=== PATIENT | male | born 1950 | race Caucasian/White ===

== ENCOUNTER 2018-10-26 10:53 | Inpatient (IN) ==
[2018-10-26] MEDS ORDERED: PULMICORT NEB TX 0.5 MG NEB ONE (11:20)
[2018-10-26] MEDS ORDERED: NS 1000 ML ONE ×2 (12:00)
[2018-10-26] MEDS ORDERED: SOLU-Medrol 40 MG VIAL ONE ×3 (12:00→21:26)
[2018-10-26] MEDS ORDERED: XYLOCAINE 1 % (PLAIN) ONE (12:00)
[2018-10-26] MEDS ORDERED: LEVAQUIN PREMIX IV 500 MG ONE (12:00)
[2018-10-26] MEDS ORDERED: MAGNESIUM SULFATE 1 GRAM/100 mL PREMIX IV ONE (21:00)
[2018-10-26] MEDS ORDERED: K-DUR TAB 20 MEQ PO ONE (23:40)
[2018-10-27] MEDS ORDERED: SOLU-Medrol 40 MG VIAL IVP ONE ×3 (08:48→22:30)
[2018-10-27] MEDS ORDERED: LEVAQUIN PREMIX IV 500 MG IV ONE (08:48)
[2018-10-27] MEDS ORDERED: FLEXERIL TAB 10 MG PO ONE ×3 (10:46→22:30)
[2018-10-27] MEDS ORDERED: TAB-A-VITE PO ONE (10:46)
[2018-10-27] MEDS ORDERED: ASPIRIN EC 81 MG PO ONE (10:46)
[2018-10-27] MEDS ORDERED: MARINOL PO ONE ×3 (10:46→22:30)
[2018-10-27] MEDS ORDERED: VITAMIN D (1.25MG) PO ONE (10:46)
[2018-10-27] MEDS ORDERED: KLONOPIN TAB 1 MG PO ONE ×2 (10:46→16:35)
[2018-10-27] MEDS ORDERED: NEURONTIN CAP 300 MG PO ONE ×3 (10:46→22:00)
[2018-10-27] MEDS ORDERED: LOPRESSOR TAB 25 MG PO ONE ×2 (10:46→22:00)
[2018-10-27] MEDS ORDERED: PROTONIX TAB 40 MG PO ONE (10:46)
[2018-10-27] MEDS ORDERED: FLOMAX PO ONE (22:00)
[2018-10-28 06:51] LABS: BASOPHILS % (AUTO) 0 % (0.2-1.0); HEMOGLOBIN 9.8 g/dL (13.5-18.0); LYMPHOCYTES # (AUTO) 0.3 X10^3/uL (1.3-2.9); MEAN CORPUSCULAR HGB CONC 33.6 g/dL (33.0-35.0); MEAN CORPUSCULAR VOLUME 89.4 fL (80.0-100.0); MEAN PLATELET VOLUME 8.3 fL (7.4-11.0); MONOCYTES # (AUTO) 0.3 x10^3/uL (0.3-0.8); NEUTROPHILS # (AUTO) 4.6 x10^3/uL (2.2-4.8); PLATELET COUNT 121 X10^3/uL (150.0-450.0); RED BLOOD COUNT 3.25 X10^6/uL (4.7-6.0); RED CELL DISTRIBUTION WIDTH 15.3 % (11.6-16.5); WHITE BLOOD COUNT 5.1 X10^3/uL (3.6-10.0)
[2018-10-28 06:58] LABS: ALANINE AMINOTRANSFERASE 52 Units/L (12-78); ALBUMIN 3.1 g/dL (3.4-5.0); ALKALINE PHOSPHATASE 103 Units/L (46-116); ASPARTATE AMINO TRANSFERASE 33 Units/L (15-37); BLOOD UREA NITROGEN 13 mg/dL (7-18); CALCIUM 7.8 mg/dL (8.5-10.1); CARBON DIOXIDE 38.8 mmol/L (21-32); CHLORIDE 104 mmol/L (98-107); COR CA(FOR HYPOALB) 8.5 mg/dL (8.5-10.1); COR NA(FOR HYPERGLY) 145 mmol/L (136-145); CREATININE 0.58 mg/dL (0.70-1.30); SODIUM 144 mmol/L (136-145); TOTAL PROTEIN 6.4 g/dL (6.4-8.2); eGFR NON BLACK RACES > 60 (>60)
[2018-10-28] MEDS ORDERED: MOTRIN TAB 600 MG PO PRN (07:37)
[2018-10-28] MEDS ORDERED: KLONOPIN TAB 1 MG PO PRN (07:38)
[2018-10-28] MEDS ORDERED: NS 1000 ML 1,000 ML IV SCH (08:00)
[2018-10-28 08:19] LABS: CHLORIDE 98 mmol/L (98-107); SODIUM 145 mmol/L (136-145)
[2018-10-28 08:21] LABS: BLOOD UREA NITROGEN 7 mg/dL (7-18); CALCIUM 8.2 mg/dL (8.5-10.1); CARBON DIOXIDE > 45.0 mmol/L (21-32); COR NA(FOR HYPERGLY) 145 mmol/L (136-145); CREATININE 0.56 mg/dL (0.70-1.30); eGFR NON BLACK RACES > 60 (>60)
[2018-10-28 08:22] LABS: ALANINE AMINOTRANSFERASE 98 Units/L (12-78); ALBUMIN 3.6 g/dL (3.4-5.0); ALKALINE PHOSPHATASE 122 Units/L (46-116); ASPARTATE AMINO TRANSFERASE 66 Units/L (15-37); MAGNESIUM 1.6 mg/dL (1.7-2.9); TOTAL PROTEIN 7.2 g/dL (6.4-8.2)
[2018-10-28 08:23] LABS: HEMATOCRIT 30.8 % (42.0-54.0); HEMOGLOBIN 10.2 g/dL (13.5-18.0); MEAN CORPUSCULAR HEMOGLOBIN 29.6 pg (27.0-34.0); MEAN CORPUSCULAR VOLUME 89.8 fL (80.0-100.0); PLATELET COUNT 124 X10^3/uL (150.0-450.0); RED BLOOD COUNT 3.43 X10^6/uL (4.7-6.0); WHITE BLOOD COUNT 4.3 X10^3/uL (3.6-10.0)
[2018-10-28 08:24] LABS: BASOPHILS % (AUTO) 0.1 % (0.2-1.0); LYMPHOCYTES # (AUTO) 0.3 X10^3/uL (1.3-2.9); LYMPHOCYTES % (AUTO) 7.8 % (21.0-51.0); MEAN PLATELET VOLUME 7.7 fL (7.4-11.0); MONOCYTES # (AUTO) 0.1 x10^3/uL (0.3-0.8); MONOCYTES % (AUTO) 2.5 % (0.0-13.0); NEUTROPHILS # (AUTO) 3.8 x10^3/uL (2.2-4.8); NEUTROPHILS % (AUTO) 88.6 % (42.0-75.0)
[2018-10-28 08:25] LABS: CKMB % 2.6 % (<4); CREATINE KINASE 65 Units/L (39-308); CREATINE KINASE MB 1.7 ng/mL (0-4.0); TROPONIN I < 0.02 ng/mL (0-1.5)
[2018-10-28 08:26] LABS: CKMB % 2.6 % (<4); CREATINE KINASE 62 Units/L (39-308); CREATINE KINASE MB 1.6 ng/mL (0-4.0); TROPONIN I < 0.02 ng/mL (0-1.5)
[2018-10-28 08:29] LABS: CHLORIDE 100 mmol/L (98-107); SODIUM 142 mmol/L (136-145)
[2018-10-28 08:32] LABS: ALANINE AMINOTRANSFERASE 69 Units/L (12-78); ALBUMIN 3.2 g/dL (3.4-5.0); ALKALINE PHOSPHATASE 109 Units/L (46-116); ASPARTATE AMINO TRANSFERASE 48 Units/L (15-37); BLOOD UREA NITROGEN 9 mg/dL (7-18); CALCIUM 7.8 mg/dL (8.5-10.1); CARBON DIOXIDE 41.5 mmol/L (21-32); COR CA(FOR HYPOALB) 8.4 mg/dL (8.5-10.1); COR NA(FOR HYPERGLY) 145 mmol/L (136-145); CREATININE 0.61 mg/dL (0.70-1.30); TOTAL PROTEIN 6.7 g/dL (6.4-8.2); eGFR NON BLACK RACES > 60 (>60)
[2018-10-28 08:33] LABS: MAGNESIUM 2.2 mg/dL (1.7-2.9)
[2018-10-28 08:34] LABS: RED BLOOD COUNT 3.25 X10^6/uL (4.7-6.0); WHITE BLOOD COUNT 3.2 X10^3/uL (3.6-10.0)
[2018-10-28 08:35] LABS: HEMOGLOBIN 9.6 g/dL (13.5-18.0); LYMPHOCYTES % (AUTO) 4.9 % (21.0-51.0); MEAN CORPUSCULAR HEMOGLOBIN 29.6 pg (27.0-34.0); MEAN CORPUSCULAR HGB CONC 33.1 g/dL (33.0-35.0); MEAN CORPUSCULAR VOLUME 89.2 fL (80.0-100.0); MEAN PLATELET VOLUME 8.5 fL (7.4-11.0); NEUTROPHILS % (AUTO) 87.6 % (42.0-75.0); PLATELET COUNT 127 X10^3/uL (150.0-450.0); RED CELL DISTRIBUTION WIDTH 15.2 % (11.6-16.5)
[2018-10-28 08:36] LABS: BASOPHILS % (AUTO) 0.3 % (0.2-1.0); LYMPHOCYTES # (AUTO) 0.2 X10^3/uL (1.3-2.9); MONOCYTES # (AUTO) 0.2 x10^3/uL (0.3-0.8); MONOCYTES % (AUTO) 7.2 % (0.0-13.0); NEUTROPHILS # (AUTO) 2.8 x10^3/uL (2.2-4.8)
[2018-10-28] MEDS ORDERED: DUONEB 0.5 MG/3 MG NEB SCH (09:00)
[2018-10-28] MEDS ORDERED: LOPRESSOR TAB 25 MG PO SCH (09:00)
[2018-10-28] MEDS ORDERED: ASPIRIN EC 81 MG PO SCH (09:00)
[2018-10-28] MEDS ORDERED: TAB-A-VITE PO SCH (09:00)
[2018-10-28] MEDS ORDERED: LEVAQUIN PREMIX IV 500 MG 500 MG/100 ML BAG IV SCH (09:00)
[2018-10-28] MEDS ORDERED: PULMICORT NEB TX 0.5 MG NEB SCH (09:00)
[2018-10-28] MEDS ORDERED: MARINOL PO SCH (14:00)
[2018-10-28] MEDS ORDERED: SOLU-Medrol 125 MG VIAL IVP SCH (14:00)
[2018-10-28] MEDS ORDERED: NEURONTIN CAP 300 MG PO SCH (14:00)
[2018-10-28] MEDS ORDERED: FLEXERIL TAB 10 MG PO SCH (14:00)
[2018-10-28 15:17] LABS: ABG BASE EXCESS 22.9 mmol/L (-2.0-2.0)
[2018-10-28 15:20] LABS: ABG HCO3 51.8 mmol/L (22-26); FRACTIONATED INSPIRED OXYGEN 32
--- NOTE | 2018-10-28 15:25 | DR.H&P ---
H&P - History & Physical for Day of: H&P Date: 10/26/18 - Chief Complaint Chief Complaint: Hypoxia and SOB - History of Present Illness History of Present Illness: The patient is a 68-year-old white male who presents for follow up of multiple medical problems. The patient does have COPD with chronic respiratory failure. is present. states that he has "not felt good" over the last 24 hours. However, he states he "always feels bad". SPO2 noted to be reading very low on pulse oximetry. The highest reading in office was noted to be to 71% on 4L o2 via NC with multiple efforts. The patient was recently on the vent for a period of time at the begining of the year and agrees that she wants to be aggressive with treatment now to prevent going back on vent. Patient is reluctant to hospitalization, but subsequently agrees. - Past Medical History Past Medical History: Anxiety, COPD, Dyslipidemia, GERD, Hypertension Additional Medical History: diverticulosis - Past Surgical History Surgical History: Appendectomy, Cholecystectomy, Tonsillectomy Additional Surgical History: cataract surgery - Social History Does patient currently use any type of tobacco product: No Have you used tobacco products in the last 12 months: No Type of Tobacco Use: None Does any household member use tobacco: No Alcohol Use: None Drug Use: None Risks, benefits, and alternatives of opioids discussed: Yes Prescription drug monitoring program results: PDMP reviewed and no concerns identified - Medications Home Medications: Penicillins Allergy (Verified 10/28/18 07:33) - Review of Systems Constitutional: Weakness Eyes: No Symptoms Reported ENT: No Symptoms Reported Respiratory: Shortness of Breath, SOB with Excertion, Pleuritic Pain Cardiovascular: No Symptoms Reported Gastrointestinal: No Symptoms Reported Genitourinary: No Symptoms Reported Musculoskeletal: Back Pain, Neck Pain Skin: No Symptoms Reported Neurological: No Symptoms Reported Oriented: Normal Eyes: Normal Ear: Normal Nose: Normal Throat: Normal Respiratory: Diminished Throughout Cardiovascular: Normal : Normal Auscultation: Bowel Sounds: Normal Palpation: Normal Tenderness: Normal Skin: Normal Musculoskeletal: Deformity (neck tilted to the right) Psychiatric: Anxiety Mood Description: Calm Affect: Normal Speech Pattern: Clear - Assessment/Plan (1) COPD with exacerbation Status: Acute Plan: CBC, CMP, ABG, chest x-ray, Levaquin IV, Solu-Medrol IV, nebulizer treatments. (2) Acute and chronic respiratory failure Status: Acute Plan: ABG, chest x-ray, Levaquin IV, Solu-Medrol IV, nebulizer treatments. (3) Anxiety Status: Acute Plan: continue lorazepam - Allergies Allergies/Adverse Reactions: Allergies Allergy/AdvReac Type Severity Reaction Status Date / Time Penicillins Allergy Verified 10/28/18 07:33
--- NOTE | 2018-10-28 15:31 | PCM.PROG ---
Progress Note - Progress Note for Day of Date of Exam: 10/27/18 - Subjective Subjective: the patient is a 68-year-old white male who was admitted secondary to acute on chronic respiratory failure. Patient has long-standing history of COPD. Patient states he is feeling much better. States that he has a nonproductive cough. is at bedside. Denies any additional complaints. - Past Medical Family Social History Past Med/Fam/Surg Hx: No changes since H&P Allergies: Allergies Penicillins Allergy (Verified 10/28/18 07:33) - Review of Systems ROS: No change since H&P - Physical Exam Oriented: Normal Eyes: Normal Ear: Normal Nose: Normal Throat: Normal Cardiovascular: Normal : Normal Auscultation: Bowel Sounds: Normal Palpation: Normal Tenderness: Normal Skin: Normal Musculoskeletal: Deformity (neck tilted to the right) Psychiatric: Anxiety Mood Description: Calm Affect: Normal Speech Pattern: Clear - Laboratory and Diagnostics Result Diagrams: 10/28/18 05:27 10/28/18 05:27 Labs: Laboratory WBC 5.1 X10^3/uL (3.6-10.0) 10/28/18 05:27 RBC 3.25 X10^6/uL (4.7-6.0) L 10/28/18 05:27 Hgb 9.8 g/dL (13.5-18.0) L 10/28/18 05:27 Hct 29.0 % (42.0-54.0) L 10/28/18 05:27 MCV 89.4 fL (80.0-100.0) 10/28/18 05:27 MCH 30.0 pg (27.0-34.0) 10/28/18 05:27 MCHC 33.6 g/dL (33.0-35.0) 10/28/18 05:27 RDW 15.3 % (11.6-16.5) 10/28/18 05:27 Plt Count 121 X10^3/uL (150.0-450.0) L 10/28/18 05:27 MPV 8.3 fL (7.4-11.0) 10/28/18 05:27 Neut % (Auto) 90.0 % (42.0-75.0) H 10/28/18 05:27 Lymph % (Auto) 5.0 % (21.0-51.0) L 10/28/18 05:27 [place] % (Auto) 5.0 % (0.0-13.0) 10/28/18 05:27 Eos % (Auto) 0.0 % (0.9-2.9) L 10/28/18 05:27 Baso % (Auto) 0 % (0.2-1.0) L 10/28/18 05:27 Neut # (Auto) 4.6 x10^3/uL (2.2-4.8) 10/28/18 05:27 Lymph # (Auto) 0.3 X10^3/uL (1.3-2.9) L 10/28/18 05:27 [place] # (Auto) 0.3 x10^3/uL (0.3-0.8) 10/28/18 05:27 Eos # (Auto) 0.0 x10^3/uL (0.0-0.2) 10/28/18 05:27 Baso # (Auto) 0.0 X10^3/uL (0.0-0.1) 10/28/18 05:27 Absolute Nucleated RBC 0.1 /100WBC 10/28/18 05:27 Sample Site [facility] 10/27/18 05:25 ABG pH 7.430 (7.35-7.45) 10/27/18 05:25 ABG pCO2 78.0 mmHg (35.0-45.0) H* 10/27/18 05:25 ABG pO2 67.0 mmHg (80.0-100.0) L 10/27/18 05:25 ABG HCO3 51.8 mmol/L (22-26) H* 10/27/18 05:25 ABG O2 Saturation 94.0 % (90-100) 10/27/18 05:25 ABG Base Excess 22.9 mmol/L (-2.0-2.0) H 10/27/18 05:25 Darrin Test [facility] 10/27/18 05:25 A-a Gradient 64.0 mmHg 10/27/18 05:25 FiO2 32 10/27/18 05:25 Blood Gas Comments Resulted 10/27/18 05:25 Sodium 144 mmol/L (136-145) 10/28/18 05:27 Corrected Sodium 145 mmol/L (136-145) 10/28/18 05:27 Potassium 4.3 mmol/L (3.5-5.1) 10/28/18 05:27 Chloride 104 mmol/L (98-107) 10/28/18 05:27 Carbon Dioxide 38.8 mmol/L (21-32) H 10/28/18 05:27 BUN 13 mg/dL (7-18) 10/28/18 05:27 Creatinine 0.58 mg/dL (0.70-1.30) L 10/28/18 05:27 Est GFR (MDRD) Af Amer > 60 (>60) 10/28/18 05:27 Est GFR (MDRD) Non-Af > 60 (>60) 10/28/18 05:27 Glucose 157 mg/dL (65-99) H 10/28/18 05:27 Calcium 7.8 mg/dL (8.5-10.1) L 10/28/18 05:27 Corrected Calcium 8.5 mg/dL (8.5-10.1) 10/28/18 05:27 Magnesium 2.2 mg/dL (1.7-2.9) 10/27/18 05:17 Total Bilirubin 0.70 mg/dL (0.2-1.0) 10/28/18 05:27 AST 33 Units/L (15-37) 10/28/18 05:27 ALT 52 Units/L (12-78) 10/28/18 05:27 Alkaline Phosphatase 103 Units/L (46-116) 10/28/18 05:27 Creatine Kinase 62 Units/L (39-308) 10/26/18 23:40 CK-MB (CK-2) 1.6 ng/mL (0-4.0) 10/26/18 23:40 CK/CKMB % Calc 2.6 % (<4) 10/26/18 23:40 Troponin I < 0.02 ng/mL (0-1.5) 10/26/18 23:40 Total Protein 6.4 g/dL (6.4-8.2) 10/28/18 05:27 Albumin 3.1 g/dL (3.4-5.0) L 10/28/18 05:27 Globulin 3.3 g/dL (2.5-4.5) 10/28/18 05:27 Albumin/Globulin Ratio 0.9 Ratio (1.1-2.1) L 10/28/18 05:27 - Plan (1) COPD with exacerbation Status: Acute Plan: CBC, CMP, ABG, chest x-ray, Levaquin IV, Solu-Medrol IV, nebulizer treatments. (2) Acute and chronic respiratory failure Status: Acute Plan: ABG, chest x-ray, Levaquin IV, Solu-Medrol IV, nebulizer treatments. (3) Anxiety Status: Acute Plan: continue lorazepam
--- NOTE | 2018-10-28 15:33 | PCM.DCPLAN ---
Discharge Summary - Admission Date Date of Admission: 10/26/18 - Discharge Date Discharge Date: 10/28/18 - Admission Diagnoses (1) COPD with exacerbation Status: Acute (2) Acute and chronic respiratory failure Status: Acute (3) Anxiety Status: Acute - Discharge Diagnoses Discharge Diagnosis: same as admission diagnosi - Discharge Medications Discharge Medications: Prescriptions: - Hospital Course Latest Lab Results: Laboratory Last Values WBC 5.1 X10^3/uL (3.6-10.0) 10/28/18 05:27 RBC 3.25 X10^6/uL (4.7-6.0) L 10/28/18 05:27 Hgb 9.8 g/dL (13.5-18.0) L 10/28/18 05:27 Hct 29.0 % (42.0-54.0) L 10/28/18 05:27 MCV 89.4 fL (80.0-100.0) 10/28/18 05:27 MCH 30.0 pg (27.0-34.0) 10/28/18 05:27 MCHC 33.6 g/dL (33.0-35.0) 10/28/18 05:27 RDW 15.3 % (11.6-16.5) 10/28/18 05:27 Plt Count 121 X10^3/uL (150.0-450.0) L 10/28/18 05:27 MPV 8.3 fL (7.4-11.0) 10/28/18 05:27 Neut % (Auto) 90.0 % (42.0-75.0) H 10/28/18 05:27 Lymph % (Auto) 5.0 % (21.0-51.0) L 10/28/18 05:27 [place] % (Auto) 5.0 % (0.0-13.0) 10/28/18 05:27 Eos % (Auto) 0.0 % (0.9-2.9) L 10/28/18 05:27 Baso % (Auto) 0 % (0.2-1.0) L 10/28/18 05:27 Neut # (Auto) 4.6 x10^3/uL (2.2-4.8) 10/28/18 05:27 Lymph # (Auto) 0.3 X10^3/uL (1.3-2.9) L 10/28/18 05:27 [place] # (Auto) 0.3 x10^3/uL (0.3-0.8) 10/28/18 05:27 Eos # (Auto) 0.0 x10^3/uL (0.0-0.2) 10/28/18 05:27 Baso # (Auto) 0.0 X10^3/uL (0.0-0.1) 10/28/18 05:27 Absolute Nucleated RBC 0.1 /100WBC 10/28/18 05:27 Sample Site [facility] 10/27/18 05:25 ABG pH 7.430 (7.35-7.45) 10/27/18 05:25 ABG pCO2 78.0 mmHg (35.0-45.0) H* 10/27/18 05:25 ABG pO2 67.0 mmHg (80.0-100.0) L 10/27/18 05:25 ABG HCO3 51.8 mmol/L (22-26) H* 10/27/18 05:25 ABG O2 Saturation 94.0 % (90-100) 10/27/18 05:25 ABG Base Excess 22.9 mmol/L (-2.0-2.0) H 10/27/18 05:25 Darrin Test [facility] 10/27/18 05:25 A-a Gradient 64.0 mmHg 10/27/18 05:25 FiO2 32 10/27/18 05:25 Blood Gas Comments Resulted 10/27/18 05:25 Sodium 144 mmol/L (136-145) 10/28/18 05:27 Corrected Sodium 145 mmol/L (136-145) 10/28/18 05:27 Potassium 4.3 mmol/L (3.5-5.1) 10/28/18 05:27 Chloride 104 mmol/L (98-107) 10/28/18 05:27 Carbon Dioxide 38.8 mmol/L (21-32) H 10/28/18 05:27 BUN 13 mg/dL (7-18) 10/28/18 05:27 Creatinine 0.58 mg/dL (0.70-1.30) L 10/28/18 05:27 Est GFR (MDRD) Af Amer > 60 (>60) 10/28/18 05:27 Est GFR (MDRD) Non-Af > 60 (>60) 10/28/18 05:27 Glucose 157 mg/dL (65-99) H 10/28/18 05:27 Calcium 7.8 mg/dL (8.5-10.1) L 10/28/18 05:27 Corrected Calcium 8.5 mg/dL (8.5-10.1) 10/28/18 05:27 Magnesium 2.2 mg/dL (1.7-2.9) 10/27/18 05:17 Total Bilirubin 0.70 mg/dL (0.2-1.0) 10/28/18 05:27 AST 33 Units/L (15-37) 10/28/18 05:27 ALT 52 Units/L (12-78) 10/28/18 05:27 Alkaline Phosphatase 103 Units/L (46-116) 10/28/18 05:27 Creatine Kinase 62 Units/L (39-308) 10/26/18 23:40 CK-MB (CK-2) 1.6 ng/mL (0-4.0) 10/26/18 23:40 CK/CKMB % Calc 2.6 % (<4) 10/26/18 23:40 Troponin I < 0.02 ng/mL (0-1.5) 10/26/18 23:40 Total Protein 6.4 g/dL (6.4-8.2) 10/28/18 05:27 Albumin 3.1 g/dL (3.4-5.0) L 10/28/18 05:27 Globulin 3.3 g/dL (2.5-4.5) 10/28/18 05:27 Albumin/Globulin Ratio 0.9 Ratio (1.1-2.1) L 10/28/18 05:27 Hospital Course: he patient is a 68-year-old white male who presents for follow up of multiple medical problems. The patient does have COPD with chronic respiratory failure. is present. states that he has "not felt good" over the last 24 hours. However, he states he "always feels bad". SPO2 noted to be reading very low on pulse oximetry. The highest reading in office was noted to be to 71% on 4L o2 via NC with multiple efforts. The patient was recently on the vent for a period of time at the begining of the year and agrees that she wants to be aggressive with treatment now to prevent going back on vent. Patient is reluctant to hospitalization, but subsequently agrees. patient was given IV Levaquin and Solu-Medrol. Nebulizer treatments were administered as well. ABGs remained stable from prior history. Patient did have marked improvement and on 10/28/2018 was felt stable for discharge. - Discharge Plan Disposition: 01 HOME, SELF-CARE Condition: Stable - Follow ups/Referrals Follow ups/Referrals: JODEE ROSARIO [Primary Care Provider] - 1 WEEK - Instructions
[2018-10-28] MEDS ORDERED: FLOMAX PO SCH (21:00)
[2018-10-29] MEDS ORDERED: PROTONIX TAB 40 MG PO SCH (07:00)
== END 2018-10-28 14:23 | disposition home or self-care (01) | DRG 190 ==
LOC: ICU 10:53 → OBS 10-27 08:00 → UNDODISIN 10-28 14:23 → ICU 10-31 15:35
PROVIDERS: ADMIT Internal Medicine; ATTEND Internal Medicine
DX: E78.2 Mixed hyperlipidemia; R94.31 Abnormal electrocardiogram [ECG] [EKG]; F41.8 Other specified anxiety disorders; J44.1 Chronic obstructive pulmonary disease with (acute) exacerbation; K21.9 Gastro-esophageal reflux disease without esophagitis; J96.21 Acute and chronic respiratory failure with hypoxia; I10 Essential (primary) hypertension
CPT/HCPCS: 36415; 36569; 36600; 71010; 71045; 80053; 82550; 82553; 82803; 83735; 84484; 85025; 93005; 94640; 94760; 96365; 96374; 96375; 99284; A4222; G0378; J1956; J2920; J3475; J7030; J7626